=== PATIENT | female | born 2000 | race Caucasian/White ===

== ENCOUNTER → 2023-09-19 10:56 | Outpatient (REF) | payer OTHER, SELFPAY | LOC: RAD 10:56 | PROVIDERS: ATTENDING PHYSICIAN Nurse Practitioner Family | DX: R20.0 Anesthesia of skin (principal) | CPT/HCPCS: 72110 ==

== ENCOUNTER → 2023-10-03 07:20 | Outpatient (REF) | payer OTHER, SELFPAY | LOC: EMG 07:20 | PROVIDERS: ATTENDING PHYSICIAN Nurse Practitioner Family | DX: R20.0 Anesthesia of skin (principal) | CPT/HCPCS: 95886; 95911 ==